=== PATIENT | female | born 1980 | race Caucasian/White ===

== ENCOUNTER 2024-11-07 23:35 | Inpatient (IN) | payer MEDICAID, OTHER ==
[~2024-11-07] VITALS: Ht 157.5 cm; Wt 74.1 kg
[2024-11-08] VITALS (7 sets, daily range): BP systolic 108–158; BP diastolic 56–78; PULSE 62–88; RESP 16–20; TEMP 97.6–98.4; O2SAT 98–99
--- NOTE | 2024-11-08 00:03 | ED.PDOC ---
History of Present Illness HPI Comments 44-year-old female with no reported PMHx presents with a chief complaint of left breast pain x 2 days. Patient states that her pain is localized to her left breast. Patient mentions that she was prescribed doxycycline by her PMD and has only been taking it for 2 days. Patient mentions that the pain began spo ntaneously. No other symptoms or modifying factors present at this time. Chief Complaint: Breast pain Time Seen by MD: 23:55 Reviewed Notes: Medications, Allergies Allergies: Coded Allergies: NO KNOWN ALLERGIES (Unverified , 11/07/24) Information Source: Patient Mode of Arrival: Ambulatory Severity: Moderate Timing: Days Duration: Since onset Prehospital treatment: None Vital Signs Vital Signs Date Time Temp Pulse Resp B/P (MAP) Pulse Ox O2 Delivery O2 Flow Rate FiO2 11/08/24 02:48 62 16 98 Room Air* 0 21 11/08/24 02:48 114/68 (83) 11/07/24 23:46 98.7 98.7 Physical Exam General: Awake, alert and oriented. No acute distress. Skin: Skin in warm, dry and intact without rashes or lesions. HEENT: The head is normocephalic and atraumatic. Conjunctivae are clear without exudates or hemorrhage. Sclera is non-icteric. Neck: Normal range of motion. No JVD. Chest: Left breast warm, erythematous, tender, overlying dry/scaling rash. Mild induration. No palpable fluctuance. Cardiac: Regular rate Respiratory: No signs of respiratory distress. No Stridor. Extremities: Upper and lower extremities are atraumatic in appearance without deformity. Neurological: The patient is awake, alert and oriented to person, place, and time with normal speech. Speech is clear. There is no facial asymmetry. Psychiatric: Appropriate mood and affect. Good judgement and insight. Review of Systems: REVIEW OF SYSTEMS: No fever, no chills, or fatigue HEENT: No sore throat, no earache, no congestion, no neck pain. Cardiac: No chest pain. No palpitations. Lungs: No shortness of breath, no cough. GI: No nausea, no vomiting, no diarrhea, no constipation, no abdominal pain : No dysuria, frequency, or urgency. No hematuria. Musculoskeletal: No joint pain , no joint swelling, no extremity edema. Skin: Left breast rash, no itching. Neuro: No headache, no dizziness, no weakness Past Medical History PAST MEDICAL HISTORY: Denies Surgical History: Denies all surgeries SOLID PLASTERER History: Denies all SOLID PLASTERER Hx Family History Family History: Reviewed,noncontributory to illness Social History Smoker: Non-Smoker Alcohol: Denies ETOH Use Drugs: Denies Drug Use Lives In: Home Was a procedure done? Was a procedure done?: No Differential Dx Considerations may include: Cellulitis, mastitis, breast carcinoma, abscess, allergic reaction, other X-Ray, Labs, Meds, VS Vital Signs Date Time Temp Pulse Resp B/P (MAP) Pulse Ox O2 Delivery O2 Flow Rate FiO2 11/08/24 02:48 62 16 98 Room Air* 0 21 11/08/24 02:48 62 16 114/68 (83) 98 11/07/24 23:46 98.7 86 20 132/83 (99) 99 98.7 Lab Test 11/08/24 00:10 Range/Units White Blood Count 12.5 H 4.4-10.8 10^3/uL Red Blood Count 4.33 4.0-5.20 10^6/uL Hemoglobin 13.2 12.2-16.2 g/dL Hematocrit 38.9 36.0-46.0 % Mean Corpuscular Volume 89.8 80.0-100.0 fL Mean Corpuscular Hemoglobin 30.5 28.0-32.0 pg Mean Corpuscular Hemoglobin Concent 34.0 32.0-36.0 g/dL Red Cell Distribution Width 13.1 11.8-14.3 % Platelet Count 297 140-450 10^3/uL Mean Platelet Volume 7.8 6.9-10.8 fL Neutrophils (%) (Auto) 54.9 37.0-80.0 % Lymphocytes (%) (Auto) 34.2 10.0-50.0 % Monocytes (%) (Auto) 8.5 0.0-12.0 % Eosinophils (%) (Auto) 1.4 0.0-7.0 % Basophils (%) (Auto) 1.0 0.0-2.0 % Neutrophils # (Auto) 6.8 1.6-8.6 10 ^3/uL Lymphocytes # (Auto) 4.3 0.4-5.4 10 ^3/uL Monocytes # (Auto) 1.1 0-1.3 10 ^3/uL Eosinophils # (Auto) 0.2 0-0.8 10 ^3/uL Basophils # (Auto) 0.1 0-0.2 10 ^3/uL Nucleated Red Blood Cells 0.1 % Erythrocyte Sedimentation Rate Pending Sodium Level 138 136-145 mmol/L Potassium Level 3.7 3.5-5.1 mmol/L Chloride Level 103 98-107 mmol/L Carbon Dioxide Level 25 20-31 mmol/L Anion Gap 10 5-15 Blood Urea Nitrogen 17 9-23 mg/dL Creatinine 0.93 0.550-1.02 mg/dL Glomerular Filtration Rate Calc 79 >90 mL/min BUN/Creatinine Ratio 18.3 10.0-20.0 Serum Glucose 120 H 74-106 mg/dL Calcium Level 9.8 8.7-10.4 mg/dL Total Bilirubin 0.3 0.2-1.0 mg/dL Aspartate Amino Transferase (AST) 23 13-40 U/L Alanine Aminotransferase (ALT) 43 H 7-40 U/L Alkaline Phosphatase 65 46-116 U/L C-Reactive Protein High Sensitivity 0.19 <1.0 mg/dL Total Protein 7.5 5.7-8.2 g/dL Albumin 4.4 3.2-4.8 g/dL Examination: LBRST COMPARISON: None. TECHNIQUE: Real time sonography of the left breast was performed utilizing a small parts transducer. FINDINGS: Hypoechoic area seen posterior to the left nipple measuring 14 x 13 x 8 mm. It reveals irregular margins, is wider than tall with no evidence of posterior caustic shadowing. It reveals internal vascularity. No duct dilatation seen. No fluid collection seen. IMPRESSION: 1. Hypoechoic area seen posterior to the left nipple measuring 14 x 13 x 8 mm. It reveals irregular margins, is wider than tall with no evidence of posterior caustic shadowing. It reveals internal vascularity. 2. BIRAD 3. Electronically Signed 11/08/2024 02:50 Gokul Navarrete ATED BY: LANDON FU MD DICTATED DATE/TIME: 11/08/24249 SIGNED BY: LANDON FU MD SIGNED DATE/TIME: 11/08/24249 CC: Time of 1ST Reevaluation: 00:25 Reevaluation 1ST: Unchanged Patient Education/Counseling: Need For Follow Up, Other (Need for admission) Family Education/Counseling: No Family Present Departure 1 Departure Time of Disposition: 03:33 Impression: Primary Impression: Cellulitis of breast Additional Impression: Abnormal ultrasound of breast Disposition: ADMITTED INPATIENT Condition: Stable Comments 44-year-old female with possible cellulitis of the left breast. Antibiotics initiated in the emergency department. Left breast Ultrasound reveals 8 mm hypoechoic lesion, BI-RADS 3. Patient admitted to hospitalist service for further treatment, evaluation and monitoring. Extensive evaluation was performed in attempt to identify or rule out: (See differential diagnosis section) The following tests were ordered, and results were reviewed by me and discussed with patient: (See diagnostic results section) The following test were independently interpreted by me: N/A I reviewed and agreed with the following test results read by other providers: N/A I reviewed the following notes from the pt's past medical encounters: N/A Additional information was gathered from interviewing the following independent historians: N/A Discussion of management or test interpretation with external physician/other qualified health career placement specialist: N/A Decision regarding hospitalization or escalation of hospital level of care: Risk and benefits of admission for further treatment of patient's condition was considered. Due to patient's current clinical condition, high risk of decline and poor outcome if discharged and need for further inpatient management and monitoring, patient will be admitted to the hospital. Drug therapy requiring intensive monitoring for toxicity: N/A Parenteral controlled substances: N/A Decision regarding elective major surgery with identified patient or procedure risk factors: N/A Decision regarding emergency major surgery: N/A Decision not to resuscitate or to de-escalate care because of poor prognosis: N/A Diagnosis or treatment significantly limited by social determinants of health: N/A Critical Care Note Critical Care Time?: No Stability Stability form required: No Heart Score Heart Score: Heart Score Response (Comments) Value History N/A 0 EKG N/A 0 Age N/A 0 Risk Factors N/A 0 Troponin N/A 0 Total 0 I personally scribed for MINTAH,CHAILLE A MD ([email or web address]) on 11/08/24 at 00:03. Electronically submitted by Truman Renee ([email or web address]). LES WYATT MD Nov 08, 2024 00:03
[2024-11-08 00:28] LABS: Basophils # (auto) 0.1 10 ^3/uL (0-0.2); Eosinophils # (auto) 0.2 10 ^3/uL (0-0.8); Eosinophils % (auto) 1.4 % (0.0-7.0); Hematocrit 38.9 % (36.0-46.0); Hemoglobin 13.2 g/dL (12.2-16.2); Lymphocytes # (auto) 4.3 10 ^3/uL (0.4-5.4); Lymphocytes % (auto) 34.2 % (10.0-50.0); Mean Corpuscular Hemoglobin 30.5 pg (28.0-32.0); Mean Corpuscular Volume 89.8 fL (80.0-100.0); Monocytes # (auto) 1.1 10 ^3/uL (0-1.3); Monocytes % (auto) 8.5 % (0.0-12.0); Neutrophils # (auto) 6.8 10 ^3/uL (1.6-8.6); Neutrophils % (auto) 54.9 % (37.0-80.0); Nucleated Red Blood Cells % 0.1 %; Platelet Count (auto) 297 10^3/uL (140-450); Red Blood Cells 4.33 10^6/uL (4.0-5.20); Red Cell Distribution Width 13.1 % (11.8-14.3); White Blood Cell 12.5 10^3/uL (4.4-10.8)
[2024-11-08 00:46] LABS: Albumin 4.4 g/dL (3.2-4.8); Alkaline Phosphatase 65 U/L (46-116); Anion Gap 10 (5-15); Aspartate Aminotransferase 23 U/L (13-40); BUN/Creatinine Ratio 18.3 (10.0-20.0); Blood Urea Nitrogen 17 mg/dL (9-23); Calcium 9.8 mg/dL (8.7-10.4); Carbon Dioxide 25 mmol/L (20-31); Chloride 103 mmol/L (98-107); Potassium 3.7 mmol/L (3.5-5.1); Sodium 138 mmol/L (136-145); Total Protein 7.5 g/dL (5.7-8.2)
[2024-11-08 00:53] LABS: Alanine Aminotransferase 43 U/L (7-40); Bilirubin, Total 0.3 mg/dL (0.2-1.0); Glucose 120 mg/dL (74-106)
[2024-11-08] MEDS: KETOROLAC TROMETH 30 MG/ML 1ML VIAL IM ONE (02:49)
[2024-11-08] MEDS: traMADol HCL 50 MG TAB PO ONE (02:49)
--- NOTE | 2024-11-08 02:51 | DVH ---
Examination: LBRST COMPARISON: None. TECHNIQUE: Real time sonography of the left breast was performed utilizing a small parts transducer. FINDINGS: Hypoechoic area seen posterior to the left nipple measuring 14 x 13 x 8 mm. It reveals irregular donald ins, is wider than tall with no evidence of posterior caustic shadowing. It reveals internal vascula rity. No duct dilatation seen. No fluid collection seen. IMPRESSION: 1. Hypoechoic area seen posterior to the left nipple measuring 14 x 13 x 8 mm. It reveals irregular margins, is wider than tall with no evidence of posterior caustic shadowing. It reveals internal va scularity. 2. BIRAD 3. Electronically Signed 11/08/2024 02:50 Gokul Navarrete
[2024-11-08] MEDS ORDERED: IOHEXOL 300 MG/ML 100ML BOTTLE IJ ONE (04:51)
[2024-11-08] MEDS ORDERED: ACETAMINOPHEN 325 MG TAB PO PRN (05:00)
[2024-11-08] MEDS ORDERED: LORazepam 0.5 MG TAB PO PRN (05:00)
[2024-11-08] MEDS ORDERED: ONDANSETRON HCL 4 MG/2 ML VIAL IV PRN (05:00)
[2024-11-08] MEDS ORDERED: VANCOMYCIN PER PHARMACY 0 MG IV SCH (05:00)
[2024-11-08] MEDS ORDERED: MORPHINE SULFATE INJ 2 MG/ml SYRG IV PRN (05:00)
[2024-11-08] MEDS ORDERED: VANCOMYCIN 1GM/250mL NS or D5W KIT IV SCH (05:00)
[2024-11-08 05:18] LABS: Erythrocyte Sedimentation Rate 15 mm/hr (0-20)
--- NOTE | 2024-11-08 06:15 | DVHHPRES ---
History of Present Illness Resident Creating Document: ULICES HASSAN RESIDENT History of Present Illness Evy Burleson 44-year-old female patient who presents to ED with chief complaint of left breast pain, swelling, warmth and erythema which started approximately one week ago, was evaluated in [facility] and given antibiotics (dicloxacillin) and ibuprofen. Despite treatment, symptoms progressively got worse and now present discharge from left nipple with foul- smelling odor, prompting her visit to the ED. denies fever, chills, syncope, palpitation, chest pain, dyspnea, , sick contacts, recent travel and motor or sensory deficits. 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 She is not sexually active for the past three months. Her periods normally lasts for days (the 1st three days normally she uses three pads a day), her cycle lasts approximately 30 days. Gestation 3, 1, para 2via vaginal . Surgical history: Denies Family history: Noncontributory Social history: Lives in [place] with son. Denies current tobacco, alcohol and other drug abuse Allergies: Denies Home medication: dicloxacillin and ibuprofen which was given one week ago Patient seen and examined at bedside. Currently has no new complaints. Past Medical History Per HPI Past Surgical History Per HPI Family History Per HPI Past Social History Per HPI Review of Systems Review of Systems Per HPI Allergies: Coded Allergies: NO KNOWN ALLERGIES (Unverified , 11/07/24) Medications Current Medications Medications Dose Ordered Sig/Alicia Route Start Time Stop Time Status Last Admin Dose Admin Vancomycin HCl 0 ml @ 0 mls/hr UD IV 11/08/24 05:00 UNV Lorazepam 0.5 mg Q6HP PRN PO 11/08/24 05:00 Acetaminophen 650 mg Q6HP PRN PO 11/08/24 05:00 Ondansetron HCl 4 mg Q4HP PRN IV 11/08/24 05:00 Morphine Sulfate 2 mg Q4HPRN PRN IV 11/08/24 05:00 Enoxaparin Sodium 40 mg DAILY SC 11/08/24 10:00 Exam Vital Signs Vital Signs Date Time Temp Pulse Resp B/P (MAP) Pulse Ox O2 Delivery O2 Flow Rate FiO2 11/08/24 02:48 62 16 98 Room Air* 0 21 11/08/24 02:48 114/68 (83) 11/07/24 23:46 98.7 98.7 Exam Patient lying in bed, in no acute distress General: Lucid, afebrile, mucosae are moist Cardiovascular: Normal S1 and S2. No murmurs, gallops or rubs Respiratory: Normal ventilation mechanics. Clear lung sounds on auscultation Abdomen: Soft, nontender, no organomegaly, normal bowel sounds MSK/skin: Mobilizes 4 limbs. Skin is dry and warm. Left breast is swollen, erythematous, warm on touch, presents yellow purulent discharge from nipple, no fluctuating masses or palpated and no lymph nodes are palpated axilla, right breast and axillary nodes within normal limits. Neurological: Oriented in 3 spheres. No motor no sensitive deficits. Pupils are isocoric and reactive Labs/Xrays Labs Test 11/08/24 00:10 Range/Units White Blood Count 12.5 H 4.4-10.8 10^3/uL Red Blood Count 4.33 4.0-5.20 10^6/uL Hemoglobin 13.2 12.2-16.2 g/dL Hematocrit 38.9 36.0-46.0 % Mean Corpuscular Volume 89.8 80.0-100.0 fL Mean Corpuscular Hemoglobin 30.5 28.0-32.0 pg Mean Corpuscular Hemoglobin Concent 34.0 32.0-36.0 g/dL Red Cell Distribution Width 13.1 11.8-14.3 % Platelet Count 297 140-450 10^3/uL Mean Platelet Volume 7.8 6.9-10.8 fL Neutrophils (%) (Auto) 54.9 37.0-80.0 % Lymphocytes (%) (Auto) 34.2 10.0-50.0 % Monocytes (%) (Auto) 8.5 0.0-12.0 % Eosinophils (%) (Auto) 1.4 0.0-7.0 % Basophils (%) (Auto) 1.0 0.0-2.0 % Neutrophils # (Auto) 6.8 1.6-8.6 10 ^3/uL Lymphocytes # (Auto) 4.3 0.4-5.4 10 ^3/uL Monocytes # (Auto) 1.1 0-1.3 10 ^3/uL Eosinophils # (Auto) 0.2 0-0.8 10 ^3/uL Basophils # (Auto) 0.1 0-0.2 10 ^3/uL Nucleated Red Blood Cells 0.1 % Erythrocyte Sedimentation Rate 15 0-20 mm/hr Sodium Level 138 136-145 mmol/L Potassium Level 3.7 3.5-5.1 mmol/L Chloride Level 103 98-107 mmol/L Carbon Dioxide Level 25 20-31 mmol/L Anion Gap 10 5-15 Blood Urea Nitrogen 17 9-23 mg/dL Creatinine 0.93 0.550-1.02 mg/dL Glomerular Filtration Rate Calc 79 >90 mL/min BUN/Creatinine Ratio 18.3 10.0-20.0 Serum Glucose 120 H 74-106 mg/dL Calcium Level 9.8 8.7-10.4 mg/dL Total Bilirubin 0.3 0.2-1.0 mg/dL Aspartate Amino Transferase (AST) 23 13-40 U/L Alanine Aminotransferase (ALT) 43 H 7-40 U/L Alkaline Phosphatase 65 46-116 U/L C-Reactive Protein High Sensitivity 0.19 <1.0 mg/dL Total Protein 7.5 5.7-8.2 g/dL Albumin 4.4 3.2-4.8 g/dL Assessment/Plan Assessment/Plan Assessment: Cellulitis of left breast Hypoechoic retroareolar mass BI-RADS 3 Leukocytosis Plan: Completed breast ultrasound which showed hypoechoic area and posterior left nipple that measures 14 x 13 x 8 mm, irregular margins and has internal vascularity (BI-RADS 3) Ordered breast CT with IV contrast Consulted leasing consultant specialist to evaluate breast mass Ordered blood and wound culture. Currently under empiric IV antibiotic (vancomycin) Goals of care discussed with patient for over18 minutes: Full code status Discussed plan with Dr. Pereira, patient and nurses: Currently under empiric IV antibiotic, awaiting results of breast CT with IV contrast. Plan discussed with: Patient, Other (Nurses) My Orders Orders - ULICES HASSAN RESIDENT Procedure Category Date Status Time Vancomycin Per PHA 11/08/24 Pending Pharmacy 05:00 Phosphorus LAB 11/08/24 Logged 04:49 PTPTT LAB 11/08/24 Logged 04:49 Vitamin D, 25-Hydroxy LAB 11/08/24 Logged 04:49 Vitamin B12 LAB 11/08/24 Logged 04:49 Urinalysis LAB 11/08/24 Logged 04:49 Thyroid Stimulating LAB 11/08/24 Logged Hormone 04:49 Magnesium LAB 11/08/24 Logged 04:49 Lipid Panel LAB 11/08/24 Logged 04:49 Lactic Acid W/ Reflex LAB 11/08/24 Logged Order 04:49 Hemoglobin A1c LAB 11/08/24 Logged 04:49 Drug Screen LAB 11/08/24 Logged 04:49 Complete Blood Count LAB 11/08/24 Logged 04:49 Comprehensive LAB 11/08/24 Logged Metabolic Panel 04:49 Blood Culture [facility] 11/08/24 Logged 04:49 * Wound Consult CONS 11/08/24 Transmitted Wound Culture W/ Gs [facility] 11/08/24 Logged 04:49 * Tab Cutting Machine Operator Consultation CONS 11/08/24 Transmitted 04:49 Admit ADMIT 11/08/24 Transmitted 04:49 Code Status CODE 11/08/24 Transmitted 04:49 Vital Signs [facility] 11/08/24 In Process 04:49 Review Orders With [facility] 11/08/24 In Process Adm.Md 04:49 Regular Diet DIET 11/08/24 Transmitted Breakfast Lorazepam Tablet [facility] 11/08/24 In Process (Ativan Tablet) 05:00 Acetaminophen Tablet [facility] 11/08/24 In Process (Tylenol Tablet) 05:00 Notify Of Changes [facility] 11/08/24 In Process From Base 04:49 Advance Directive [facility] 11/08/24 In Process 04:49 Patient Condition ORDERS 11/08/24 Transmitted 04:49 Allergies [facility] 11/08/24 In Process 04:49 Ondansetron Hcl [facility] 11/08/24 In Process (Zofran) 05:00 Morphine Sulfate [facility] 11/08/24 In Process Injection 05:00 Enoxaparin Sodium [facility] 11/08/24 In Process (Lovenox) 10:00 Oxygen By Nasal RT 11/08/24 Transmitted Cannula 04:49 Stat Ekg For Chest [facility] 11/08/24 In Process Pain 04:49 Notify Md Of Changes [facility] 11/08/24 In Process From Base 04:49 Continuous Improvement Manager For [facility] 11/08/24 In Process 24 Hours 04:49 Emergency Dysrhythmia [facility] 11/08/24 In Process Protocol 04:49 Rhythm Strips Once [facility] 11/08/24 In Process Every Shift 04:49 Vancomycin [facility] 11/08/24 In Process 1.75gm/350ml 05:15 Date of Service: Nov 08, 2024 Billing Provider: ELIZABETH PEREIRA MD Common Visit Codes: [id number] INP/OBS CARE (HIGH) ULICES HASSAN RESIDENT Nov 08, 2024 06:15 ELIZABETH PEREIRA MD Nov 08, 2024 13:33
--- NOTE | 2024-11-08 06:22 | DVH ---
EXAM: CT Chest With Intravenous Contrast CLINICAL INDICATION: breast inflammation, abnormal breast US finding , L nipple TECHNIQUE: Axial computed tomography images of the chest with intravenous contrast. This CT exam wa s performed using one or more of the following dose reduction techniques: automated exposure control , adjustment of the mA and/or kV according to patient size, and/or use of iterative reconstruction te chnique. CONTRAST: RADIATION DOSE: CTDIvol = 8.66 mGy, DLP = 329.35 mGy-cm COMPARISON: None FINDINGS: ARTIFACTS: Motion artifact. LUNGS AND PLEURAL SPACES: Unremarkable. No mass. No consolidation. No pneumothorax. No signific ant effusion. HEART: Unremarkable. No cardiomegaly. No significant pericardial effusion. No significant borden ry artery calcifications. MEDIASTINUM: Small esophageal hiatal hernia. BONES/JOINTS: Unremarkable. No acute fracture. No dislocation. SOFT TISSUES: Unremarkable breast tissues on the CT scan. If symptoms persists. Further evaluation with targeted ultrasound or mammography is recommended. VASCULATURE: Unremarkable. No thoracic aortic aneurysm. LYMPH NODES: Unremarkable. No enlarged lymph nodes. LIVER: Fatty infiltration of the liver. OTHER FINDINGS: . . . . IMPRESSION: 1. Unremarkable breast tissues on the CT scan. If symptoms persists. Further evaluation with target ed ultrasound or mammography is recommended. 2. Small esophageal hiatal hernia.
[2024-11-08] MEDS: VANCOMYCIN 1.75 GM/350 ML IV ONE (06:31)
[2024-11-08 06:35] LABS: Basophils # (auto) 0.1 10 ^3/uL (0-0.2); Basophils % (auto) 1.1 % (0.0-2.0); Eosinophils # (auto) 0.1 10 ^3/uL (0-0.8); Eosinophils % (auto) 0.8 % (0.0-7.0); Hematocrit 39.7 % (36.0-46.0); Hemoglobin 13.4 g/dL (12.2-16.2); Lymphocytes # (auto) 2.8 10 ^3/uL (0.4-5.4); Lymphocytes % (auto) 23.5 % (10.0-50.0); Mean Corpuscular Hemoglobin 30.2 pg (28.0-32.0); Mean Corpuscular Hgb Conc. 33.8 g/dL (32.0-36.0); Mean Corpuscular Volume 89.3 fL (80.0-100.0); Monocytes # (auto) 1.1 10 ^3/uL (0-1.3); Monocytes % (auto) 9.6 % (0.0-12.0); Neutrophils # (auto) 7.6 10 ^3/uL (1.6-8.6); Nucleated Red Blood Cells % 0.1 %; Platelet Count (auto) 294 10^3/uL (140-450); Red Blood Cells 4.45 10^6/uL (4.0-5.20); Red Cell Distribution Width 13.2 % (11.8-14.3); White Blood Cell 11.7 10^3/uL (4.4-10.8)
[2024-11-08 06:44] LABS: INR 0.92 (0.9-1.15); Partial Thromboplastin Time 26.5 SEC (24.5-34.5); Prothrombin Time 9.8 sec (9.3-11.8)
[2024-11-08] MEDS ORDERED: DOXY100C PO (06:48)
[2024-11-08] MEDS ORDERED: IBU600T PO (06:48)
[2024-11-08 07:00] LABS: Alanine Aminotransferase 49 U/L (7-40); Albumin 4.5 g/dL (3.2-4.8); Alkaline Phosphatase 74 U/L (46-116); Anion Gap 8 (5-15); Aspartate Aminotransferase 30 U/L (13-40); BUN/Creatinine Ratio 21.2 (10.0-20.0); Bilirubin, Total 0.3 mg/dL (0.2-1.0); Blood Urea Nitrogen 18 mg/dL (9-23); Calcium 10.2 mg/dL (8.7-10.4); Carbon Dioxide 26 mmol/L (20-31); Chloride 100 mmol/L (98-107); Cholesterol 179 mg/dL (< 200); Glucose 102 mg/dL (74-106); HDL Cholesterol 38 mg/dL (40-59); LDL Cholesterol 75 mg/dL (< 100); Magnesium 1.9 mg/dL (1.6-2.6); Phosphorus 4.4 mg/dL (2.4-5.1); Sodium 134 mmol/L (136-145); Total Protein 7.2 g/dL (5.7-8.2); Triglycerides 355 mg/dL (< 150)
[2024-11-08] MEDS: CLINDAMYCIN 300MG IV 50 ML IV ONE (09:49)
[2024-11-08] MEDS: ENOXAPARIN SOD 40 MG/0.4 ML SYRINGE SC SCH (09:49)
[2024-11-08] MEDS ORDERED: KETOROLAC TROMETH 30 MG/ML 1ML VIAL IV PRN (10:15)
[2024-11-08] MEDS ORDERED: ONDANSETRON HCL 4 MG/2 ML VIAL IM ONE (10:15)
[2024-11-08] MEDS: KETOROLAC TROMETH 30 MG/ML 1ML VIAL IV ONE (11:50)
[2024-11-08] MEDS: ONDANSETRON HCL 4 MG/2 ML VIAL IV ONE (11:51)
[2024-11-08 14:55] LABS: Urine Bacteria None Seen /hpf (None Seen); Urine Blood Negative /uL (Negative); Urine Clarity Clear (Clear); Urine Color Light-Yellow (Yellow); Urine Mucus FEW (None Seen); Urine Protein, UAD Negative (Negative); Urine Specific Gravity 1.029 (1.001-1.035); Urine Squamous Epithelial Cell FEW /hpf (<5); Urine Urobilinogen Normal (Negative); Urine WBC 6 /HPF (0-5); Urine pH 5.5 (5.0-9.0)
[2024-11-08 15:04] LABS: Amphetamine Screen, Urine Neg (NEGATIVE); Barbiturate Scree,Urine Neg (NEGATIVE); Benzodiazephine Screen, Urine Neg (NEGATIVE); Cannabinoid Screen, Urine Neg (NEGATIVE); Cocaine Screen, Urine Neg (NEGATIVE); Opiate Scree,Urine Neg (NEGATIVE); Phencyclidine Screen, Urine Neg (NEGATIVE)
[2024-11-08] MEDS: VANCOMYCIN 1GM/200ML PM 200 ML IV SCH (17:57)
--- NOTE | 2024-11-08 19:19 | DVHPNRES ---
Progress Note Date Seen: Nov 08, 2024 Resident Creating Document: KEVIN MORELOS RESIDENT Has the PT tested + for MRSA If YES, has PT been informed?: No Medical Necessity Reason Pt with a Central, PICC or Fol: No Medical Necessity Reason History of present illness Evy Burleson 44-year-old female patient who presents to ED with chief complaint of left breast pain, swelling, warmth and erythema which started approximately one week ago, was evaluated in [facility] and given antibiotics (dicloxacillin) and ibuprofen. Despite treatment, symptoms progressively got worse and now present discharge from left nipple with foul- smelling odor, prompting her visit to the ED. denies fever, chills, syncope, palpitation, chest pain, dyspnea, , sick contacts, recent travel and motor or sensory deficits. 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 She is not sexually active for the past three months. Her periods normally lasts for days (the 1st three days normally she uses three pads a day), her cycle lasts approximately 30 days. Gestation 3, 1, para 2via vaginal . Surgical history: Denies Family history: Noncontributory Social history: Lives in [place] with son. Denies current tobacco, alcohol and other drug abuse Allergies: Denies Home medication: dicloxacillin and ibuprofen which was given one week ago PN: 11/08/2024 Patient is a 44 years old female with no past medical history present to the ED with left breast pain for about 1 week. She is [place] speaking only. she reported to another facility and was given an antibiotic ( Dicloxacillin) without improvement and now has a foul smelling nipple discharge. Thus prompting her visit. Patient is not currently . She denies trauma to the best, tattoos to the breast fever, chills, nauseas or vomiting or chest pain.US sound of breast showed Hypoechoic area seen posterior to the left nipple measuring 14 x 13 x 8 mm. It reveals irregular margins, is wider than tall with no evidence of posterior caustic shadowing. It reveals internal vascularity. BIRAD 3. CT breast showed unremarkable breast tissues on the CT scan. If symptoms persists. Further evaluation with targeted ultrasound or mammography is recommended. Small esophageal hiatal hernia. Subjective Review of Systems Constitutional: Denies fever no chills no feeling of malaise, HEENT: Denies headache, ear pain, ear discharges, conjunctivitis, nasal discharge throat pain Cardiovascular: Denies chest pain, palpitation, orthopnea, PND, or pedal edema Respiratory: Denies shortness of breath, cough cough, sputum production, hemoptysis, GI: Denies abdominal pain, nausea, vomiting, diarrhea, hematemesis, hematochezia, : Denies frequency, urgency, hematuria, Endocrine: Denies unintentional weight gain or weight loss, feeling of hot flashes, Jarett: Denies easy bruising, bleeding disorders, epistaxis Musculoskeletal: Denies joint pains, muscle aches Psych: No evidence of depression, sully, suicidal ideation Nothing else other the mentioned in the HPI Objective vital signs Vital Sign Date Time Temp Pulse Resp B/P (MAP) Pulse Ox O2 Delivery O2 Flow Rate FiO2 11/08/24 16:33 98.3 75 18 118/69 (85) 98 98.3 11/08/24 02:48 Room Air* 0 21 medications Current Medications Medications Dose Ordered Sig/Alicia Route Start Time Stop Time Status Last Admin Dose Admin Vancomycin HCl 0 ml @ 0 mls/hr UD IV 11/08/24 05:00 Lorazepam 0.5 mg Q6HP PRN PO 11/08/24 05:00 Acetaminophen 650 mg Q6HP PRN PO 11/08/24 05:00 Ondansetron HCl 4 mg Q4HP PRN IV 11/08/24 05:00 Morphine Sulfate 2 mg Q4HPRN PRN IV 11/08/24 05:00 Vancomycin HCl 200 ml @ 160 mls/hr Q12H IV 11/08/24 18:00 11/08/24 17:57 160 MLS/HR Examination General Appearance: Alert, Oriented X3, Cooperative, No acute distress HEENT: Atraumatic, PERRLA, EOMI, Mucous membrane moist/pink Respiratory: Clear to auscultation, Normal air movement Cardiovascular: Regular rate, Normal S1, Normal S2, No murmurs, no chest wall tenderness Abdominal: NO distention, no tenderness, bowel sounds present, no scars noted Extremities: No clubbing, No cyanosis, No edema, Normal pulses, No tenderness/swelling Skin: No rashes, No breakdown, No significant lesion Neuro: Normal gait, Normal speech, Strength at 5/5 X4 ext, Normal tone, Sensation intact, Cranial nerves 3-12 NL, Reflexes 2+ Psych/Mental Status: Mental status NL, Mood NL pending full breast examination once patient gets a bed. laboratory and microbiology Laboratory Tests 11/08/24 05:50 Test 11/08/24 05:50 Range/Units Serum Glucose 102 74-106 mg/dL Problem List/Assessment/Plan Problem List/Assessment/Plan ASSESSMENT Cellulitis of left breast --> Pending full breast examination --> Completed breast ultrasound which showed hypoechoic area and posterior left nipple that measures 14 x 13 x 8 mm, irregular margins and has internal vascularity (BI-RADS 3) -->CT chest: Unremarkable breast tissues on the CT scan. If symptoms persists. Further evaluation with targeted ultrasound or mammography is recommended. Small esophageal hiatal hernia. --> Vancomycin --> Toradol --> Probably surgical consult Leukocytosis --> Vancomycin Vitamin D deficiency --> give vitamin D Overweight --> BMI 29.9 --> Will discuss healthy lifestyle practices Goals of care discussed with patient for over18 minutes: Full code status Case and plan discussed + Dr. Simms Plan discussed with: Patient My Orders My Orders Orders - KEVIN MORELOS RESIDENT Procedure Category Date Status Time Cleanse Wound With MINI 11/08/24 In Process Wound Clean 11:33 Date of Service: Nov 08, 2024 Billing Provider: CINDY SIMMS MD Common Visit Codes: [id number] INP/OBS CARE(HIGH) KEVIN MORELOS RESIDENT Nov 08, 2024 19:19 CINDY SIMMS MD Nov 09, 2024 20:47
--- NOTE | 2024-11-08 20:35 | DVHINCON2 ---
DATE OF CONSULTATION: 11/08/2024 SURGICAL CONSULTATION HISTORY OF PRESENT ILLNESS: The patient is a 44-year-old female presenting to the emergency room with complaint of left breast pain and drainage. The patient had a steadily increasing pain in the left breast with swelling, warmth of the breast over a week. She was initially evaluated at [facility] and was given dicloxacillin and ibuprofen. Her symptoms progressively worsened and now she is having a discharge from the left nipple, which is foul smelling. The patient denies fever, chills and syncope or palpitations. The patient has a last menstrual period on the of last month. She is not sexually active for the last 3 months. The patient denies any previous operations on her chest, abdomen or breast. The patient lives in [place] with his son. She does not use tobacco, alcohol or drug use. She has no medicinal allergies. REVIEW OF SYSTEMS: She has been having low-grade fevers. Otherwise, no contributory information to the current illness and review of systems of the 12 systems reviewed. PHYSICAL EXAMINATION: GENERAL: Well-developed, well-nourished female who appears chronically ill. HEENT: Pupils are equal, round, react to light equally. Sclerae nonicteric. Extraocular motion is intact. Uvula midline. Trachea midline. Carotids are full without bruits. Jugular veins are collapsed. HEART: Regular rate and rhythm without murmur or gallop. ABDOMEN: Nondistended, nontender. There is no CVA tenderness. EXTREMITIES: No peripheral vascular insufficiency. No venous stasis. LABORATORY DATA: The patient's admissions white count was 12.5, which has decreased to 11.7. There is no left shift. H and H are stable. Platelet count is normal. The patient's coags, PT is 9.8. INR is 0.92. On chemistries, she is found to have normal sodium, normal potassium, normal chloride and carbon dioxide. BUN is normal. Creatinine is normal. The patient's glucose is 120 on admission, down to 102 today. The patient has normal liver enzymes, elevated triglycerides and elevated cholesterol. Otherwise, the patient's chemistry is normal. The patient underwent imaging by means of a CT scan of the breast. The CT of the chest that was done with contrast is interpreted as showing a unremarkable breast tissue on the CT scan, recommending ultrasound and mammography. The patient did undergo a breast ultrasound, which shows hypoechoic area posterior to the left nipple measuring 14 x 13 x 8 mm. It has irregular margins with internal vascularity. There is no fluid to be drained. No ductal dilatation. I recommend application of warm moist compresses. Continue IV antibiotics and consider repeating the ultrasound in 4-5 days. Currently, there is no indication for surgical intervention. Repeat the ultrasound in 48-72 hours. MD KARIS Smith/LUIS M TID: [id number] RECEIPT: [id number]
[2024-11-09 05:00] VITALS: BP 103/54; PULSE 70; RESP 16; TEMP 98.3; O2SAT 99
[2024-11-09] MEDS: ERGOCALCIFEROL 50,000 UNIT(1.25MG) CAP PO SCH (05:23)
[2024-11-09 06:49] LABS: Basophils # (auto) 0.1 10 ^3/uL (0-0.2); Basophils % (auto) 0.6 % (0.0-2.0); Eosinophils # (auto) 0.2 10 ^3/uL (0-0.8); Eosinophils % (auto) 2.4 % (0.0-7.0); Hematocrit 35.9 % (36.0-46.0); Hemoglobin 12.3 g/dL (12.2-16.2); Lymphocytes # (auto) 3.3 10 ^3/uL (0.4-5.4); Lymphocytes % (auto) 35.8 % (10.0-50.0); Mean Corpuscular Hemoglobin 30.8 pg (28.0-32.0); Mean Corpuscular Hgb Conc. 34.3 g/dL (32.0-36.0); Mean Corpuscular Volume 89.8 fL (80.0-100.0); Monocytes # (auto) 0.9 10 ^3/uL (0-1.3); Monocytes % (auto) 10.3 % (0.0-12.0); Neutrophils # (auto) 4.7 10 ^3/uL (1.6-8.6); Neutrophils % (auto) 50.9 % (37.0-80.0); Nucleated Red Blood Cells % 0.1 %; Platelet Count (auto) 279 10^3/uL (140-450); Red Blood Cells 3.99 10^6/uL (4.0-5.20); Red Cell Distribution Width 13.4 % (11.8-14.3); White Blood Cell 9.2 10^3/uL (4.4-10.8)
[2024-11-09 08:00] VITALS: RESP 18; O2SAT 97
[2024-11-09 08:48] VITALS: BP 91/45; PULSE 71; RESP 17; TEMP 98.1; O2SAT 95
--- NOTE | 2024-11-09 11:03 | DVHPN2 ---
Progress Note Date Seen: Nov 09, 2024 Has the PT tested + for MRSA If YES, has PT been informed?: No Medical Necessity Reason Pt with a Central, PICC or Fol: No Objective vital signs Vital Sign Date Time Temp Pulse Resp B/P (MAP) Pulse Ox O2 Delivery O2 Flow Rate FiO2 11/09/24 08:48 98.1 71 17 91/45 (60) 95 98.1 11/08/24 22:39 Room Air* 0 21 Total Intake and Output 11/08/24 11/08/24 11/09/24 15:00 23:00 07:00 Intake Total 400 ml 820 ml Balance 400 ml 820 ml medications Current Medications Medications Dose Ordered Sig/Alicia Route Start Time Stop Time Status Last Admin Dose Admin Vancomycin HCl 0 ml @ 0 mls/hr UD IV 11/08/24 05:00 Lorazepam 0.5 mg Q6HP PRN PO 11/08/24 05:00 Acetaminophen 650 mg Q6HP PRN PO 11/08/24 05:00 Ondansetron HCl 4 mg Q4HP PRN IV 11/08/24 05:00 Morphine Sulfate 2 mg Q4HPRN PRN IV 11/08/24 05:00 Vancomycin HCl 200 ml @ 160 mls/hr Q12H IV 11/08/24 18:00 11/09/24 05:11 160 MLS/HR Ergocalciferol 50,000 unit Q7D PO 11/09/24 04:30 11/09/24 05:23 50,000 UNIT laboratory and microbiology Laboratory Tests 11/09/24 05:54 11/08/24 05:50 Test 11/08/24 05:50 Range/Units Serum Glucose 102 74-106 mg/dL Problem List/Assessment/Plan Problem List/Assessment/Plan 11/09/24 improved, less pain, less tenderness, breast less reddened, continue antibiotics, no operation for now. Plan discussed with: Patient PIPO VALERIO MD Nov 09, 2024 11:03
[2024-11-09 12:50] VITALS: BP 93/62; PULSE 53; RESP 17; TEMP 98.5; O2SAT 92
--- NOTE | 2024-11-09 15:52 | DVHPNRES ---
Progress Note Date Seen: Nov 09, 2024 Resident Creating Document: KEVIN MORELOS RESIDENT Has the PT tested + for MRSA If YES, has PT been informed?: No Medical Necessity Reason Pt with a Central, PICC or Fol: No Medical Necessity Reason History of present illness Evy Burleson 44-year-old female patient who presents to ED with chief complaint of left breast pain, swelling, warmth and erythema which started approximately one week ago, was evaluated in [facility] and given antibiotics (dicloxacillin) and ibuprofen. Despite treatment, symptoms progressively got worse and now present discharge from left nipple with foul- smelling odor, prompting her visit to the ED. denies fever, chills, syncope, palpitation, chest pain, dyspnea, , sick contacts, recent travel and motor or sensory deficits. 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 She is not sexually active for the past three months. Her periods normally lasts for days (the 1st three days normally she uses three pads a day), her cycle lasts approximately 30 days. Gestation 3, 1, para 2via vaginal . Surgical history: Denies Family history: Noncontributory Social history: Lives in [place] with son. Denies current tobacco, alcohol and other drug abuse Allergies: Denies Home medication: dicloxacillin and ibuprofen which was given one week ago PN: 11/08/2024 Patient is a 44 years old female with no past medical history present to the ED with left breast pain for about 1 week. She is Surinamese speaking only. she reported to another facility and was given an antibiotic ( Dicloxacillin) without improvement and now has a foul smelling nipple discharge. Thus prompting her visit. Patient is not currently . She denies trauma to the best, tattoos to the breast fever, chills, nauseas or vomiting or chest pain.US sound of breast showed Hypoechoic area seen posterior to the left nipple measuring 14 x 13 x 8 mm. It reveals irregular margins, is wider than tall with no evidence of posterior caustic shadowing. It reveals internal vascularity. BIRAD 3. CT breast showed unremarkable breast tissues on the CT scan. If symptoms persists. Further evaluation with targeted ultrasound or mammography is recommended. Small esophageal hiatal hernia. PN: 11/09/2024 Patient and examined at bedside. She is doing well. No fever, chills, nauseas or vomiting. Patient was seen by the surgery and recommended not surgical intervention at this time. Her WBC readings are better, WNL. Subjective Review of Systems General Appearance: Alert, Oriented X3, Cooperative, No acute distress HEENT: Atraumatic, PERRLA, EOMI, Mucous membrane moist/pink Lung: Clear to auscultation, Normal air movement Left Breast: No redness,No skin changes or jeromy d'orange skin note, no nipple discharges No fluctuance palpated Cardiovascular: Regular rate, Normal S1, Normal S2, No murmurs, no chest wall tenderness Abdominal: NO distention, no tenderness, bowel sounds present, no scars noted Extremities: No clubbing, No cyanosis, No edema, Normal pulses, No tenderness/swelling Skin: No rashes, No breakdown, No significant lesion Neuro: Normal gait, Normal speech, Strength at 5/5 X4 ext, Normal tone, Sensation intact, Cranial nerves 3-12 NL, Reflexes 2+ Psych/Mental Status: Mental status NL, Mood NL Objective vital signs Vital Sign Date Time Temp Pulse Resp B/P (MAP) Pulse Ox O2 Delivery O2 Flow Rate FiO2 11/09/24 12:50 98.5 53 17 93/62 (72) 92 98.5 11/09/24 08:00 Room Air* 0 21 Total Intake and Output 11/08/24 11/08/24 11/09/24 15:00 23:00 07:00 Intake Total 400 ml 820 ml Balance 400 ml 820 ml medications Current Medications Medications Dose Ordered Sig/Alicia Route Start Time Stop Time Status Last Admin Dose Admin Vancomycin HCl 0 ml @ 0 mls/hr UD IV 11/08/24 05:00 Lorazepam 0.5 mg Q6HP PRN PO 11/08/24 05:00 Acetaminophen 650 mg Q6HP PRN PO 11/08/24 05:00 Ondansetron HCl 4 mg Q4HP PRN IV 11/08/24 05:00 Morphine Sulfate 2 mg Q4HPRN PRN IV 11/08/24 05:00 Vancomycin HCl 200 ml @ 160 mls/hr Q12H IV 11/08/24 18:00 11/09/24 05:11 160 MLS/HR Ergocalciferol 50,000 unit Q7D PO 11/09/24 04:30 11/09/24 05:23 50,000 UNIT laboratory and microbiology Laboratory Tests 11/09/24 05:54 11/08/24 05:50 Test 11/08/24 05:50 Range/Units Serum Glucose 102 74-106 mg/dL Microbiology Date/Time Source Procedure Growth Status 11/08/24 11:38 Breast Gram Stain - Preliminary Resulted 11/08/24 11:38 Breast Wound Culture - Preliminary Resulted 11/08/24 05:50 Blood Blood Culture - Preliminary NO GROWTH AFTER 24 HOURS OF INCUBATION. Resulted Problem List/Assessment/Plan Problem List/Assessment/Plan ASSESSMENT Cellulitis of left breast --> IMPROVED --> No, no redness or flatulent --> Completed breast ultrasound which showed hypoechoic area and posterior left nipple that measures 14 x 13 x 8 mm, irregular margins and has internal vascularity (BI-RADS 3) -->CT chest: Unremarkable breast tissues on the CT scan. If symptoms persists. Further evaluation with targeted ultrasound or mammography is recommended. Small esophageal hiatal hernia. --> Vancomycin --> Toradol --> No surgical intervention --> repeat breast US tomorrow 11/11/2027 and likely discharge tomorrow Leukocytosis--> IMPROVED --> Vancomycin Vitamin D deficiency --> give vitamin D Overweight --> BMI 29.9 --> Will discuss healthy lifestyle practices Goals of care discussed with patient for over18 minutes: Full code status Case and plan discussed + Dr. Simms Plan discussed with: Patient My Orders My Orders Orders - KVEIN MORELOS Procedure Category Date Status Time Ergocalciferol PHA 11/09/24 In Process (Vitamin D 50,000 04:30 L Breast Ultrasound US 11/10/24 Logged 11:25 Complete Blood Count LAB 11/10/24 Verified 04:00 Date of Service: Nov 09, 2024 Billing Provider: CINDY SIMMS MD Common Visit Codes: [id number] INP/OBS CARE(HIGH) KEVIN MORELOS RESIDENT Nov 09, 2024 15:52 CINDY SIMMS MD Nov 09, 2024 20:48
[2024-11-09 17:00] VITALS: BP 100/61; PULSE 79; RESP 17; TEMP 98.6; O2SAT 97
[2024-11-09 21:00] VITALS: BP 125/71; PULSE 83; RESP 17; TEMP 99.7; O2SAT 98
[2024-11-10 01:00] VITALS: BP 127/74; PULSE 81; RESP 17; TEMP 99.5; O2SAT 98
[2024-11-10 05:00] VITALS: BP 96/51; PULSE 67; RESP 17; TEMP 97.4; O2SAT 98
[2024-11-10 07:48] LABS: Basophils # (auto) 0.1 10 ^3/uL (0-0.2); Basophils % (auto) 0.6 % (0.0-2.0); Eosinophils # (auto) 0.3 10 ^3/uL (0-0.8); Eosinophils % (auto) 2.9 % (0.0-7.0); Hematocrit 37.7 % (36.0-46.0); Lymphocytes % (auto) 33.2 % (10.0-50.0); Mean Corpuscular Hgb Conc. 34.6 g/dL (32.0-36.0); Mean Corpuscular Volume 89.5 fL (80.0-100.0); Monocytes # (auto) 0.9 10 ^3/uL (0-1.3); Monocytes % (auto) 10.2 % (0.0-12.0); Neutrophils # (auto) 4.8 10 ^3/uL (1.6-8.6); Neutrophils % (auto) 53.1 % (37.0-80.0); Nucleated Red Blood Cells % 0.1 %; Platelet Count (auto) 301 10^3/uL (140-450); Red Blood Cells 4.21 10^6/uL (4.0-5.20); Red Cell Distribution Width 13.4 % (11.8-14.3); White Blood Cell 9.1 10^3/uL (4.4-10.8)
[2024-11-10 08:00] VITALS: O2SAT 97
--- NOTE | 2024-11-10 11:09 | DVH ---
US OF THE left BREAST INDICATION: Re-evaluation for mass /fluid ( L breast) TECHNIQUE: Targeted left breast ultrasound was performed. COMPARISON: Prior exam dated: 11/08/2024 FINDINGS: Stable skin thickening with hypoechoic area in the left retroareolar region. No organized fluid colle ction. No suspicious sonographic abnormalities left breast mass. IMPRESSION: Stable skin thickening with hypoechoic area in the left retroareolar region may represent mastitis. Recommend treatment with antibiotics. Recommend short-term follow-up left breast ultrasound in 1 gee h further evaluation with diagnostic bilateral mammogram. ACR Bi Rads Category:Category 3
[2024-11-10 13:00] VITALS: BP 130/76; PULSE 73; RESP 19; TEMP 99.1; O2SAT 98
--- NOTE | 2024-11-10 13:08 | DVHPN2 ---
Progress Note Date Seen: Nov 10, 2024 Has the PT tested + for MRSA If YES, has PT been informed?: No Medical Necessity Reason Pt with a Central, PICC or Fol: No Objective vital signs Vital Sign Date Time Temp Pulse Resp B/P (MAP) Pulse Ox O2 Delivery O2 Flow Rate FiO2 11/10/24 08:00 97 Room Air* 0 21 11/10/24 05:00 97.4 67 17 96/51 (66) 97.4 Total Intake and Output 11/09/24 11/09/24 11/10/24 15:00 23:00 07:00 Intake Total 340 ml 450 ml Balance 340 ml 450 ml medications Current Medications Medications Dose Ordered Sig/Alicia Route Start Time Stop Time Status Last Admin Dose Admin Vancomycin HCl 0 ml @ 0 mls/hr UD IV 11/08/24 05:00 Lorazepam 0.5 mg Q6HP PRN PO 11/08/24 05:00 Acetaminophen 650 mg Q6HP PRN PO 11/08/24 05:00 Ondansetron HCl 4 mg Q4HP PRN IV 11/08/24 05:00 Morphine Sulfate 2 mg Q4HPRN PRN IV 11/08/24 05:00 Vancomycin HCl 200 ml @ 160 mls/hr Q12H IV 11/08/24 18:00 11/10/24 06:05 160 MLS/HR Ergocalciferol 50,000 unit Q7D PO 11/09/24 04:30 11/09/24 05:23 50,000 UNIT laboratory and microbiology Laboratory Tests 11/10/24 07:00 11/08/24 05:50 Test 11/08/24 05:50 Range/Units Serum Glucose 102 74-106 mg/dL Problem List/Assessment/Plan Problem List/Assessment/Plan 11/09/24 improved, less pain, less tenderness, breast less reddened, continue antibiotics, no operation for now. 11/10/24 IMPROVED, MUCH LESS TENDER, FROM SURGICAL POINT OF VIEW SHE CAN BE DISCHARGED ON ANTIBIOTICAS, TO FOLLOW WITH HER PRIMARY AND AND GET A MAMMOGRAM IN ABOUT 3 WEEKS Plan discussed with: Patient, Daughter [email or web address] MD Nov 10, 2024 13:08
[2024-11-10] MEDS ORDERED: AUG875T PO (13:52)
[2024-11-10] MEDS ORDERED: ACET-1882 PO (13:52)
--- NOTE | 2024-11-10 13:58 | DVHDSRES ---
Discharge Summary Date of Admission Resident Creating Document: KEVIN MORELOS RESIDENT Nov 08, 2024 at 04:49 Date of Discharge: Nov 10, 2024 Admitting Diagnosis Left breast pain and discharge Labs/Diagnostic Data: PATIENT: AUGUST BURLESONCT: [id number] UNIT: [id number] : 1980 LOC: EAST ROOM / BED: 024DS / 8 AGE / SEX: 44 / F ADM STATUS: ADM IN SERVICE 1125 ORDERING PHYSICIAN: KEVIN MORELOS PROCEDURE(s): LBRST - L BREAST ULTRASOUND REASON: Re-evaluation for mass /fluid ( L breast) ORDER NUMBER(s): [id number], ACCESSION NUMBER(s): [id number] US OF THE left BREAST INDICATION: Re-evaluation for mass /fluid ( L breast) TECHNIQUE: Targeted left breast ultrasound was performed. COMPARISON: Prior exam dated: 11/08/2024 FINDINGS: Stable skin thickening with hypoechoic area in the left retroareolar region. No organized fluid collection. No suspicious sonographic abnormalities left breast mass. IMPRESSION: Stable skin thickening with hypoechoic area in the left retroareolar region may represent mastitis. Recommend treatment with antibiotics. Recommend short-term follow-up left breast ultrasound in 1 month further evaluation with diagnostic bilateral mammogram. ACR Bi Rads Category:Category 3 ATED BY: RHYS SWEET MD DICTATED DATE/TIME: 11/10/24 1106 PATIENT: AUGUST BURLESONCT: [id number] UNIT: [id number] : 1980 LOC: OVERFLOW ROOM / BED: 1014-ER / A AGE / SEX: 44 / F ADM STATUS: ADM IN SERVICE 0354 ORDERING PHYSICIAN: LES WYATT MD PROCEDURE(s): CXICT - CHEST WITH CONTRAST REASON: breast inflammation, abnormal breast US finding , L nipple ORDER NUMBER(s): [id number], ACCESSION NUMBER(s): [id number] EXAM: CT Chest With Intravenous Contrast CLINICAL INDICATION: breast inflammation, abnormal breast US finding , L nipple TECHNIQUE: Axial computed tomography images of the chest with intravenous contrast. This CT exam was performed using one or more of the following dose reduction techniques: automated exposure control, adjustment of the mA and/or kV according to patient size, and/or use of iterative reconstruction technique. CONTRAST: RADIATION DOSE: CTDIvol = 8.66 mGy, DLP = 329.35 mGy-cm COMPARISON: None FINDINGS: ARTIFACTS: Motion artifact. LUNGS AND PLEURAL SPACES: Unremarkable. No mass. No consolidation. No pneumothorax. No significant effusion. HEART: Unremarkable. No cardiomegaly. No significant pericardial effusion. No significant coronary artery calcifications. MEDIASTINUM: Small esophageal hiatal hernia. BONES/JOINTS: Unremarkable. No acute fracture. No dislocation. SOFT TISSUES: Unremarkable breast tissues on the CT scan. If symptoms persists. Further evaluation with targeted ultrasound or mammography is recommended. VASCULATURE: Unremarkable. No thoracic aortic aneurysm. LYMPH NODES: Unremarkable. No enlarged lymph nodes. LIVER: Fatty infiltration of the liver. OTHER FINDINGS: . . . . IMPRESSION: 1. Unremarkable breast tissues on the CT scan. If symptoms persists. Further evaluation with targeted ultrasound or mammography is recommended. 2. Small esophageal hiatal hernia. ATED BY: STACY VALDES MD DICTATED DATE/TIME: 11/08/24619 PATIENT: AUGUST BURLESONCT: [id number] UNIT: [id number] : 1980 LOC: ER ROOM / BED: / AGE / SEX: 44 / F ADM STATUS: REG ER SERVICE 0000 ORDERING PHYSICIAN: LES WYATT MD PROCEDURE(s): LBRST - L BREAST ULTRASOUND REASON: Rule out abscess ORDER NUMBER(s): [id number], ACCESSION NUMBER(s): [id number] Examination: LBRST COMPARISON: None. TECHNIQUE: Real time sonography of the left breast was performed utilizing a small parts transducer. FINDINGS: Hypoechoic area seen posterior to the left nipple measuring 14 x 13 x 8 mm. It reveals irregular margins, is wider than tall with no evidence of posterior caustic shadowing. It reveals internal vascularity. No duct dilatation seen. No fluid collection seen. IMPRESSION: 1. Hypoechoic area seen posterior to the left nipple measuring 14 x 13 x 8 mm. It reveals irregular margins, is wider than tall with no evidence of posterior caustic shadowing. It reveals internal vascularity. 2. BIRAD 3. Electronically Signed 11/08/2024 02:50 Gokul Navarrete ATED BY: LANDON FU MD DICTATED DATE/TIME: 11/08/24 0250 Laboratory Results Test 11/10/24 07:00 11/09/24 17:37 11/08/24 05:50 11/08/24 04:49 White Blood Count 9.1 10^3/uL (4.4-10.8) Red Blood Count 4.21 10^6/uL (4.0-5.20) Hemoglobin 13.0 g/dL (12.2-16.2) Hematocrit 37.7 % (36.0-46.0) Mean Corpuscular Volume 89.5 fL (80.0-100.0) Mean Corpuscular Hemoglobin 31.0 pg (28.0-32.0) Mean Corpuscular Hemoglobin Concent 34.6 g/dL (32.0-36.0) Red Cell Distribution Width 13.4 % (11.8-14.3) Platelet Count 301 10^3/uL (140-450) Mean Platelet Volume 7.5 fL (6.9-10.8) Neutrophils (%) (Auto) 53.1 % (37.0-80.0) Lymphocytes (%) (Auto) 33.2 % (10.0-50.0) Monocytes (%) (Auto) 10.2 % (0.0-12.0) Eosinophils (%) (Auto) 2.9 % (0.0-7.0) Basophils (%) (Auto) 0.6 % (0.0-2.0) Neutrophils # (Auto) 4.8 10 ^3/uL (1.6-8.6) Lymphocytes # (Auto) 3.0 10 ^3/uL (0.4-5.4) Monocytes # (Auto) 0.9 10 ^3/uL (0-1.3) Eosinophils # (Auto) 0.3 10 ^3/uL (0-0.8) Basophils # (Auto) 0.1 10 ^3/uL (0-0.2) Nucleated Red Blood Cells 0.1 % Creatinine 0.83 mg/dL (0.550-1.02) Glomerular Filtration Rate Calc 90 mL/min (>90) Vancomycin Level Trough 10.7 ug/mL (5-10) Prothrombin Time 9.8 sec (9.3-11.8) Prothrombin Time INR 0.92 (0.9-1.15) Activated Partial Thromboplast Time 26.5 SEC (24.5-34.5) Sodium Level 134 mmol/L (136-145) Potassium Level 4.0 mmol/L (3.5-5.1) Chloride Level 100 mmol/L (98-107) Carbon Dioxide Level 26 mmol/L (20-31) Anion Gap 8 (5-15) Blood Urea Nitrogen 18 mg/dL (9-23) BUN/Creatinine Ratio 21.2 (10.0-20.0) Serum Glucose 102 mg/dL (74-106) Hemoglobin A1c 5.2 % A1C (<5.7) Lactic Acid Level 1.4 mmol/L (0.4-2.0) Calcium Level 10.2 mg/dL (8.7-10.4) Phosphorus Level 4.4 mg/dL (2.4-5.1) Magnesium Level 1.9 mg/dL (1.6-2.6) Total Bilirubin 0.3 mg/dL (0.2-1.0) Aspartate Amino Transferase (AST) 30 U/L (13-40) Alanine Aminotransferase (ALT) 49 U/L (7-40) Alkaline Phosphatase 74 U/L (46-116) Total Protein 7.2 g/dL (5.7-8.2) Albumin 4.5 g/dL (3.2-4.8) Triglycerides Level 355 mg/dL (< 150) Cholesterol Level 179 mg/dL (< 200) LDL Cholesterol 75 mg/dL (< 100) HDL Cholesterol 38 mg/dL (40-59) Vitamin B12 Level 1250 pg/mL (211-911) Vitamin D 25-Hydroxy 22.2 ng/mL (30.0-100) Thyroid Stimulating Hormone (TSH) 3.00 uIU/mL (0.55-4.78) Urine Color Light-yellow (Yellow) Urine Clarity Clear (Clear) Urine pH 5.5 (5.0-9.0) Urine Specific [place] 1.029 (1.001-1.035) Urine Protein Negative (Negative) Urine Ketones Negative (Negative) Urine Blood Negative /uL (Negative) Urine Nitrite Negative (Negative) Urine Bilirubin Negative (Negative) Urine Urobilinogen Normal mg/dL (Negative) Urine Leukocyte Esterase 1+ /uL (Negative) Urine RBC <1 /hpf (0 - 4) Urine Microscopic WBC 6 /HPF (0-5) Urine Squamous Epithelial Cells Few /hpf (<5) Urine Bacteria None seen /hpf (None Seen) Urine Mucus Few (None Seen) Urine Glucose Normal mg/dL (Normal) Urine Opiates Screen Neg (NEGATIVE) Urine Fentanyl Screen Neg (NEGATIVE) Urine Barbiturates Screen Neg (NEGATIVE) Urine Phencyclidine Screen Neg (NEGATIVE) Urine Amphetamines Screen Neg (NEGATIVE) Urine Benzodiazepines Screen Neg (NEGATIVE) Urine Cocaine Screen Neg (NEGATIVE) Urine Cannabinoids Screen Neg (NEGATIVE) Test 11/08/24 00:10 Erythrocyte Sedimentation Rate 15 mm/hr (0-20) C-Reactive Protein High Sensitivity 0.19 mg/dL (<1.0) Other Laboratory Tests 11/10/24 07:00 11/08/24 05:50 Brief Hx & Hospital Course: History of present illness August Burleson 44-year-old female patient who presents to ED with chief complaint of left breast pain, swelling, warmth and erythema which started approximately one week ago, was evaluated in [facility] and given antibiotics (dicloxacillin) and ibuprofen. Despite treatment, symptoms progressively got worse and now present discharge from left nipple with foul- smelling odor, prompting her visit to the ED. denies fever, chills, syncope, palpitation, chest pain, dyspnea, , sick contacts, recent travel and motor or sensory deficits. 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 She is not sexually active for the past three months. Her periods normally lasts for days (the 1st three days normally she uses three pads a day), her cycle lasts approximately 30 days. Gestation 3, 1, para 2via vaginal . Surgical history: Denies Family history: Noncontributory Social history: Lives in [place] with son. Denies current tobacco, alcohol and other drug abuse Allergies: Denies Home medication: dicloxacillin and ibuprofen which was given one week ago Brief Hospital course Patient is a 44 years old female with no past medical history present to the ED with left breast pain for about 1 week. She is Yi speaking only. She reported to another facility and was given an antibiotic ( Dicloxacillin) without improvement and now has a foul smelling nipple discharge. Thus prompting her visit to [facility]. Patient is not currently . She denies trauma to the best, tattoos to the breast fever, chills, nauseas or vomiting or chest pain.US sound of breast showed Hypoechoic area seen posterior to the left nipple measuring 14 x 13 x 8 mm. It reveals irregular margins, is wider than tall with no evidence of posterior caustic shadowing. It reveals internal vascularity. BIRAD 3. CT breast showed unremarkable breast tissues on the CT scan. She received vancomycin and seen by the surgery who recommend no surgical intervention. Breast swelling and discharge had improved significantly on vancomycin and her wbc had improved as well. She denied fever, chills, nauseas or vomiting. A repeat US of the left Breast today showed improving improving mass. Stable skin thickening with hypoechoic area in the left retroareolar region may represent mastitis. Will discharge patient home on antibiotics. Review of symptoms Constitutional: Denies fever no chills no feeling of malaise HEENT: Denies headache, ear pain, ear discharges, conjunctivitis, nasal discharge throat pain Cardiovascular: Denies chest pain, palpitation, orthopnea, PND, or pedal edema Respiratory: Denies shortness of breath, cough cough, sputum production, hemoptysis, GI: Denies abdominal pain, nausea, vomiting, diarrhea, hematemesis, hematochezia, : Denies frequency, urgency, hematuria, Endocrine: Denies unintentional weight gain or weight loss, feeling of hot flashes, Jarett: Denies easy bruising, bleeding disorders, epistaxis Musculoskeletal: Denies joint pains, muscle aches Psych: No evidence of depression, sully, suicidal ideation EXAMINATION General Appearance: Alert, Oriented X3, Cooperative, No acute distress HEENT: Atraumatic, PERRLA, EOMI, Mucous membrane moist/pink Lung: Clear to auscultation, Normal air movement Left Breast: Bandage with minimal discharges, No redness,No skin changes or jeromy d'orange skin note No fluctuance palpated Cardiovascular: Regular rate, Normal S1, Normal S2, No murmurs, no chest wall tenderness Abdominal: NO distention, no tenderness, bowel sounds present, no scars noted Extremities: No clubbing, No cyanosis, No edema, Normal pulses, No tenderness/swelling Skin: No rashes, No breakdown, No significant lesion Neuro: Normal gait, Normal speech, Strength at 5/5 X4 ext, Normal tone, Sensation intact, Cranial nerves 3-12 NL, Reflexes 2+ Psych/Mental Status: Mental status NL, Mood NL Diagnoses Mastitis Leukocytosis Vitamin D deficiency Overweight, BMI 29.9 Discharge plan Discharge home in good condition Home with Augmentin for 5 more days follow up at the discharge clinic in 7 days Advised good breast and nipple hygiene Discharge plan discussed with Dr. Oneil Consults/Reason for consult SURGERY: Breast Mass Condition at Discharge: Good Final Diagnosis/Problems List Mastitis Leukocytosis Vitamin D deficiency Overweight, BMI 29.9 Discharge Disposition: Home Discharge Statement: "Patient was advised to return to the ER or call 911 if any headaches, dizziness, shortness of breath, chest pain, abdominal pain, bleeding, fevers, or worsening of medical condition. Patient was counseled about treatment plan, medications, possible side effects, patientverbalized understanding. All questions were answered to the best of my ability. This discharge took greater then 30 minutes in planning, reviewing documentation, counseling the patient, and discussing with other team members." ASSESSMENT ASSESSMENT Assessment Date of Service: Nov 10, 2024 Billing Provider: CINDY ONEIL MD Common Visit Codes: 95024-KOT/OBS DISCH DAY >30min KEVIN MORELOS Nov 10, 2024 13:57 CINDY ONEIL MD Nov 15, 2024 22:09
[2024-11-10 15:11] VITALS: BP 130/76; PULSE 73; RESP 19; TEMP 99.1; O2SAT 98
[2024-11-10 17:00] VITALS: BP 127/71; PULSE 65; RESP 19; TEMP 98.8; O2SAT 97
== END 2024-11-10 16:56 | disposition home or self-care (01) | DRG 385 ==
LOC: ER 23:35 → OVERFLOW 11-08 04:49 → EAST 11-08 22:40
PROVIDERS: ADMIT Student in an Organized Health Care Education/Training Program; ATTEND Student in an Organized Health Care Education/Training Program
DX: N61.0 Mastitis without abscess (principal); D72.829 Elevated white blood cell count, unspecified; E55.9 Vitamin D deficiency, unspecified; Z68.29 Body mass index [BMI] 29.0-29.9, adult; E66.3 Overweight
CPT/HCPCS: 36415; 71260; 76642; 80053; 80061; 80202; 80307; 81001; 82306; 82565; 82607; 83036; 83605; 83735; 84100; 84443; 85025; 85610; 85652; 85730; 86141; 87040; 87205; G0378; J1885; J2405; J3490

== ENCOUNTER 2025-02-18 14:19 | Emergency (ER) | payer MEDICAID ==
[~2025-02-18] VITALS: Ht 154.9 cm; Wt 72.0 kg
[~2025-02-18 14:19] MED LIST: ACET-1882 PO; AUG875T PO; DOXY100C PO; IBU600T PO
--- NOTE | 2025-02-18 14:45 | ED.PDOC ---
Back pain HPI HPI Comments 44 y/o F, presents to the ED for CC of left shoulder pain. Patient reports, she has been experiencing left shoulder pain that radiates to her left upper back onset, October 2024. Patient reports, pain to be pulsating in nature. Patient reports, that she was seen at [facility] in October 2024 for Dx:Cellulitis of the left breast endorses, symptoms to be similar. Patient denies inflammation of left breast, fever, chills, sweats, nausea, or vomiting. No other symptoms or modifying factors present at this time. Time Seen by MD: 14:40 Reviewed Notes: Nurses Notes, Medications, Allergies Allergies: Coded Allergies: NO KNOWN ALLERGIES (Unverified , 11/07/24) Home Meds Active Scripts Ibuprofen Micronized (MOTRIN TABLET) 600 Mg Tb, 600 MG PO TID PRN for 5 Days, #15 TAB *Black box warning-NSAIDS can increase risk of SC & hypertension, GI irritation, ulceration, bleed, perferation. Do not use post cardiac surgery. Use short duration/lowest effective dose. Prov:DENNIS ESCALONA MD 02/18/25 Amoxicillin & Pot Clavulanate (AUGMENTIN TABLET) 875 Mg Tb, 875 MG PO BID for 5 Days, #10 TAB Prov:KEVIN MORELOS 11/10/24 Acetaminophen (Acetaminophen) 325 Mg Tab, 650 MG PO Q6HPRN PRN for 7 Days, #56 TAB Prov:KEVIN MORELOS RESIDENT 11/10/24 Reported Medications Ibuprofen Micronized (MOTRIN TABLET) 600 Mg Tb, 600 MG PO TID PRN for PAIN SCALE 7 THRU 10, #40 TAB *Black box warning-NSAIDS can increase risk of SC & hypertension, GI irritation, ulceration, bleed, perferation. Do not use post cardiac surgery. Use short duration/lowest effective dose. 11/08/24 Doxycycline Hyclate (Vibramycin) 100 Mg Cap, 1 CAP PO BID, #14 CAP 11/08/24 Information Source: Patient Mode of Arrival: Ambulatory Timing: Months Duration: Since onset Location of Back pain: (L) Upper back Severity: Moderate Prehospital treatment: None Onset: Spontaneous History of: None Modifying Factors: Nothing Associated signs and symptoms: None Past Medical History PAST MEDICAL HISTORY: Denies Surgical History: Denies all surgeries INVOICE CHECKER History: Denies all INVOICE CHECKER Hx Family History Family History: Reviewed,noncontributory to illness Social History Smoker: Non-Smoker Alcohol: Denies ETOH Use Drugs: Denies Drug Use Lives In: Home Constitutional: denies: chills, diaphoresis, fatigue, fever, malaise, sweats, weakness, others EENTM: denies: blurred vision, double vision, ear bleeding, ear discharge, ear drainage, ear pain, ear ringing, eye pain, eye redness, hearing loss, mouth pain, mouth swelling, nasal discharge, nose bleeding, nose congestion, nose pain, photophobia, tearing, throat pain, throat swelling, voice changes, others Respiratory: denies: cough, hemoptysis, orthopnea, SOB at rest, shortness of breath, SOB with excertion, stridor, wheezing, others Cardiovascular: denies: chest pain, dizzy spells, diaphoresis, Dyspnea on exertion, edema, irregular heart beat, left arm pain, lightheadedness, palpitations, PND, syncope, others Gastrointestinal: denies: abdomen distended, abdominal pain, blood streaked bowels, constipated, diarrhea, dysphagia, difficulty swallowing, hematemesis, melena, nausea, poor appetite, poor fluid intake, rectal bleeding, rectal pain, vomiting, others Genitourinary: denies: abnormal vagina bleeding, burning, dyspareunia, dysuria, flank pain, frequency, hematuria, incontinence, pain, , vagina discharge, urgency, others Neurological: denies: dizziness, fainting, headache, left sided numbness, left sided weakness, numbness, paresthesia, pre-existing deficit, right sided numbness, right sided weakness, seizure, speech problems, tingling, tremors, weakness, others Musculoskeletal: reports: others (left shoulder pain); denies: back pain, gout, joint pain, joint swelling, muscle pain, muscle stiffness, neck pain Integumetry: denies: bruises, change in color, change in hair/nails, dryness, laceration, lesions, lumps, rash, wounds, others Allergic/Immunocompromised: denies: Difficulty Healing, Frequent Infections, Hives, Itching, others Hematologic/Lymphatic: denies: anemia, blood clots, easy bleeding, easy br uising, swollen glands, others Endocrine: denies: excessive hunger, excessive sweating, excessive thirst, excessive urination, flushing, intolerance to cold, intolerance to heat, unexplained weight gain, unexplained weight loss, others Psychiatric: denies: anxiety, bipolar disorder, depression, hopeless, panic disorder, schizophrenia, sleepless, suicidal, others All Other Systems: Reviewed and Negative Physical Exam General Appearance: Moderate Distress HEENT: Normal ENT Inspection, Pharynx Normal, TMs Normal Neck: Full Range of Motion, Non-Tender, Normal, Normal Inspection Respiratory: Chest Non-Tender, Lungs Clear, No Accessory Muscle Use, No Respiratory Distress, Normal Breath Sounds Cardiovascular: No Edema, No JVD, No Murmur, No Gallop, Normal Peripheral Pulses, Regular Rate/Rhythm Breast Exam: Deferred Gastrointestinal: No Organomegaly, Non Tender, No Pulsatile Mass, Normal Bowel Sounds, Soft Genitalia: Deferred Pelvic: Deferred Rectal: Deferred Extremities: No calf tenderness, Normal capillary refill, Normal inspection, Normal range of motion, Non-tender, No pedal edema Musculoskeletal : Apperance: Normal Neurologic: Alert, abstract checker II-XII nml as Tested, No Motor Deficits, Normal Affect, Normal Mood, No Sensory Deficits Cerebellar Function: Normal Reflexes: Normal Skin: Dry, Normal Color, Warm Peripheral Pulses: 3+ Radial (R), 3+ Radial (L) Lymphatic: No Adenopathy Was a procedure done? Was a procedure done?: No Back Pain Differential Dx Differential Diagnosis: Musculoskeletal Pain, Strain X-Ray, Labs, Meds, VS Vital Signs Date Time Temp Pulse Resp B/P (MAP) Pulse Ox O2 Delivery O2 Flow Rate FiO2 02/18/25 14:57 98.5 67 16 117/66 (83) 98 98.5 Patient alert. No sign of distress. Vitals stable. Answering all questions. Ambulating. No acute process. Chest x-ray reviewed does not show any acute process. Was given prescription of Motrin. Explained to the patient. Was told to follow up with her primary care physician. Was told to come back if there is any problem. [address] [address] Ph: [phone] DIAGNOSTIC IMAGING Diagnostic Imaging Report : [id number] Signed PATIENT: AUGUST ARIASAACCT: [id number] UNIT: [id number] : 1980 LOC: ER ROOM / BED: / AGE / SEX: 44 / F ADM STATUS: REG ER SERVICE 1451 ORDERING PHYSICIAN: DENNIS ESCALONA MD PROCEDURE(s): CXRP - CHEST PORTABLE REASON: cough ORDER NUMBER(s): [id number], ACCESSION NUMBER(s): [id number] XY CHEST PORTABLE, HISTORY: cough COMPARISON: None None TECHNICAL DATA: 1 view of the chest was obtained. FINDINGS: Lines and tubes: None Cardiomediastinal silhouette: normal Pulmonary vasculature: normal Lung expansion: normal Lung airspace: normal Lung interstitium: normal Pleura: normal Pneumothorax: no Bones: Unremarkable Other: no IMPRESSION: No acute intrathoracic abnormality. ATED BY: AB LUNA MD DICTATED DATE/TIME: 02/18/251511 SIGNED BY: AB LUNA MD SIGNED DATE/TIME: 02/18/251511 CC: Time of 1ST Reevaluation: 15:10 Reevaluation 1ST: Improved Patient Education/Counseling: Diagnosis, Treatment Family Education/Counseling: No Family Present SEPSIS Sepsis Screen Physician Orders Chest Portable (02/18/25 14:51) Urinalysis (02/18/25 14:51) Vital Signs Date Time Temp Pulse Resp B/P (MAP) Pulse Ox O2 Delivery O2 Flow Rate FiO2 02/18/25 14:57 98.5 67 16 117/66 (83) 98 98.5 Departure 1 Departure Time of Disposition: 15:27 Impression: Primary Impression: Rotator cuff (capsule) sprain Qualified Codes: S43.422A - Sprain of left rotator cuff capsule, initial encounter Disposition: 01 HOME / SELF CARE / HOMELESS Condition: Good e-Prescriptions Ibuprofen Micronized (MOTRIN TABLET) 600 Mg Tb 600 MG PO TID PRN for 5 Days, #15 TAB *Black box warning-NSAIDS can increase risk of SC & hypertension, GI irritation, ulceration, bleed, perferation. Do not use post cardiac surgery. Use short duration/lowest effective dose. Prov: DENNIS ESCALONA MD 02/18/25 Discharged With: Self Critical Care Note Critical Care Time?: No Stability Stability form required: No Heart Score Heart Score: Heart Score Response (Comments) Value History N/A 0 EKG N/A 0 Age N/A 0 Risk Factors N/A 0 Troponin N/A 0 Total 0 I personally scribed for DENNIS ESCALONA MD ([email or web address]) on 02/18/25 at 14:45. Electronically submitted by Ciera Dleacruz ([email or web address]). I personally scribed for DENNIS ESCALONA MD ([email or web address]) on 02/18/25 at 14:47. Electronically submitted by Ciera Delacruz ([email or web address]). I personally scribed for DENNIS ESCALONA MD ([email or web address]) on 02/18/25 at 15:47. Electronically submitted by Ciera Delacruz ([email or web address]). DENNIS ESCALONA MD Feb 18, 2025 14:45
[2025-02-18 14:57] VITALS: TEMP 98.5
--- NOTE | 2025-02-18 15:14 | DVH ---
XY CHEST PORTABLE, HISTORY: cough COMPARISON: None None TECHNICAL DATA: 1 view of the chest was obtained. FINDINGS: Lines and tubes: None Cardiomediastinal silhouette: normal Pulmonary vasculature: normal Lung expansion: normal Lung airspace: normal Lung interstitium: normal Pleura: normal Pneumothorax: no Bones: Unremarkable Other: no IMPRESSION: No acute intrathoracic abnormality.
[2025-02-18] MEDS ORDERED: IBU600T PO (15:28)
[2025-02-18 15:51] VITALS: BP 109/68; PULSE 55; RESP 18; O2SAT 98
== END 2025-02-18 15:51 | disposition home or self-care (01) ==
LOC: ER 14:25
DX: S43.422A Sprain of left rotator cuff capsule, initial encounter (principal); Z79.899 Other long term (current) drug therapy; X58.XXXA Exposure to other specified factors, initial encounter; Y93.89 Activity, other specified; Y92.89 Other specified places as the place of occurrence of the external cause; Y99.8 Other external cause status
CPT/HCPCS: 71045